=== PATIENT | male | born 1975 | race Caucasian/White ===

== ENCOUNTER 2017-07-30 04:12 | Inpatient (IN) | payer OTHER ==
[~2017-07-30] VITALS: Ht 175.3 cm; Wt 86.8 kg
--- NOTE | 2017-07-30 08:42 | NUR ---
PATIENT TO FLOOR VIA STRETCHER. PATIENT WAS ABLE TO WALK TO BATHROOM AND WIPE HIMSELF WITH HIBICLEANS WIPE. BACK TO BED WITH NO DIFFICULTY. ADMISSION ASSESSMENT DONE. SKIN INTACT. ABD TONES HYPOACTIVE, DENIES NAUSEA. LUNGS CLEAR. PATIENT REPORT PAIN AT THE RLQ, THAT HE RATED AT 4/10. PATIENT WAS MEDICATED. RESTING IN BED AT THIS TIME. CALL LIGHT AND PERSONAL BELONGING WITHIN REACH. PATIENT EDUCATED ABOUT CALLING WHEN NEEDED HELP.
--- NOTE | 2017-07-30 09:27 | NUR ---
PATIENT RESTING IN BED, APPEARS TO BE SLEEPING, RR DAMIEN/UNLABORED. NO APPARENT DISTRESS NOTED.
--- NOTE | 2017-07-30 10:33 | NUR ---
PATIENT WAS UP TO BATHROOM TO VOID. REPORTED RELIEF OF RLQ PAIN. RESTING IN BED AT THIS TIME. NO OTHER COMPLAINTS OR REQUEST. WILL CONTINUE TO MONITOR.
--- NOTE | 2017-07-30 12:30 | NUR ---
DR PONCE IN ROOM TO SEE AND EVALUATE PATIENT. PLAN FOR SURGERY TODAY. ALL QUESTIONS ANSWERED. PATIENT AGREE FOR SURGERY.
--- NOTE | 2017-07-30 12:42 | NUR ---
PATIENT REPORTS PAIN LEVEL AT 5/10. REQUESTED PAIN MED. PATIENT IS MEDICATED WITH DILAUDID. UP TO BATHROOM WITH NO DIFFICULTY. RESTING IN BED AT THIS TIME.
--- NOTE | 2017-07-30 13:16 | NUR ---
PATIENT OFF THE FLOOR WITH O/R NURSE ANGELA TO SURGERY.
--- NOTE | 2017-07-30 15:27 | NUR ---
07/30/17 1527 Rocio Ricks 1516 O2 REMOVED, PT SAT 100%. 1526 PT AWAKE AND ASKING QUESTIONS.
--- NOTE | 2017-07-30 16:17 | NUR ---
PATIENT BACK TO FLOOR FROM SURGERY. BEDSIDE REPORT RECEIVED FROM PACU NURSE. PATIENT SELF TRANSFER TO HOSPITAL BED WITH NO DIFFICULTY. VS TAKEN AND WNL. NO FEVER. SAT 98% ON RA. IV SITE PATENT. 3 LAP SITED ON ABD COVERED WITH GAUZE, DRY/INTACT. PATIENT DENIES NAUSEA. REPORTS 5/10 ABD PAIN AT THE INCISION SITE AND DURING URINATION. PATIENT WAS MEDICATED. JUICE, JELLO AND WATER PROVIDED. FAMILY AT BEDSIDE. NO APPARENT DISTRESS NOTED. PATIENT EDUCATED ABOUT PAIN CONTROL, PO INTAKE AND VOIDING. WILL CONTINUE TO MONITOR
--- NOTE | 2017-07-30 17:28 | NUR ---
TELEPHONE ORDER FROM DR PONCE TO ADVANCE PATIENT TO FULL LIQUID DIET.
--- NOTE | 2017-07-30 19:13 | NUR ---
RECEIVED REPORT FROM RN. PATIENT IS RESTING IN BED. REPORTS 5/10 PAIN. PAIN MEDICATION ADMINISTERED PER EMAR. NO OTHER NEEDS AT THIS TIME. CALL LIGHT WITHIN REACH.
--- NOTE | 2017-07-30 19:49 | NUR ---
PATIENT IS RESTING COMFORTABLY IN BED, BREATHING IS EVEN AND UNLABORED. PAIN MEDICATION GIVEN PER EMAR FOR 5/10 PAIN IN ABD. DENIES OTHER NEEDS AT THIS TIME. ASSESSMENT DONE. CALL LIGHT WITHIN REACH.
--- NOTE | 2017-07-30 21:39 | NUR ---
PATIENT IS RESTING COMFORTABLY IN BED, BREATHING IS EVEN AND UNLABORED. REPORTS 4/10 PAIN IN ABD, AND STATES THAT PAIN INCREASES DURING AMBULATION. GAVE PRN NORCO PER EMAR. WILL CONTINUE TO MONITOR. ALSO PROVIDED PILLOW FOR SPLINTING DURING COUGHING. NO OTHER NEEDS AT THIS TIME. CALL LIGHT WITHIN REACH.
--- NOTE | 2017-07-30 21:59 | NUR ---
PATIENT IN BED WATCHING TV. DOES NOT NEED ANYTHING AT THIS TIME.
--- NOTE | 2017-07-30 23:53 | NUR ---
PATIENT ASLEEP, DOES NOT NEED ANYTHING AT THIS TIME.
--- NOTE | 2017-07-31 00:17 | NUR ---
PATIENT REPORTS 8/10 PAIN IN ABD AFTER AMBULATION. PRN DILAUDID GIVEN PER EMAR. DENIES OTHER NEEDS AT THIS TIME. CALL LIGHT WITHIN REACH.
--- NOTE | 2017-07-31 00:31 | NUR ---
PATIENT PUT ON CONTINUOUS PULSE OX DUE TO RECEIVING IV PAIN MEDICATION. O2 SATURATION WAS FOUND AT 89%, PUT 1L O2 VIA NC ON, WITH O2 SAT GOING TO 93%. PULSE IS 103. PATIENT STATES "THAT PAIN MEDICATION IS STARTING TO WORK, IT MAKES ME SLEEPY." DENIES OTHER NEEDS AT THIS TIME. CALL LIGHT WITHIN REACH.
--- NOTE | 2017-07-31 01:47 | NUR ---
PATIENT IS RESTING COMFORTABLY IN BED, BREATHING IS EVEN AND UNLABORED ON 1L O2 VIA NC. O2 SAT IS 94%, PULSE IS 97. REPORTS 1/10 PAIN IN ABD AND DENIES NEED FOR PAIN MEDICATION. ASSESSMENT DONE. PATIENT HAS NO NEEDS AT THIS TIME. CALL LIGHT WITHIN REACH.
--- NOTE | 2017-07-31 02:06 | NUR ---
PATIENT IN BED. GOT VITAL SIGNS. NURSE DID ASSESSMENT. MADE PATIENT A NEW ICE PACK. PATIENT DOES NOT NEED ANYTHING ELSE AT THIS TIME.
--- NOTE | 2017-07-31 03:48 | NUR ---
PATIENT IS ASLEEP. DOES NOT NEED ANYTHING AT THIS TIME.
--- NOTE | 2017-07-31 05:40 | NUR ---
PATIENT'S NIGHT WAS UNEVENTFUL. HE HAS BEEN RESTING COMFORTABLY IN BED THROUGHOUT SHIFT. PAIN HAS BEEN WELL CONTROLLED WITH PRN NORCO AND DILAUDID. CURRENTLY ON 1L O2 VIA NC DUE TO IV NARCOTIC MEDICATION. VS HAVE BEEN STABLE. HE HAS IV FLUIDS AND IS A SBA. NO ACUTE CHANGES FROM BEGINNING OF SHIFT ASSESSMENT.
--- NOTE | 2017-07-31 06:25 | NUR ---
PATIENT REPORTS 7/10 ABD PAIN. PRN NORCO GIVEN PER EMAR. PATIENT STATES "THAT ORAL PAIN MEDICATION DOESN'T WORK WELL FOR ME." EDUCATION ABOUT PO PAIN MEDICATION WAS PERFORMED; PATIENT WAS INFORMED THAT PO PAIN MEDICATION TAKES LONGER FOR ONSET OF PAIN RELIEF. HE WAS AGREEABLE TO TAKING PO PAIN MEDICATION. TOLD THE PATIENT THAT IF THE PAIN MEDICATION DOES NOT WORK, THE MEDICAL TEAM WILL RE-EVALUATE THE PAIN MEDICATION REGIMIN. NO OTHER NEEDS AT THIS TIME. CALL LIGHT WITHIN REACH.
--- NOTE | 2017-07-31 07:40 | NUR ---
PT VOIDED APPROX 40ML CONCENTRATED URINE PER MARY PAINTER SUPERVISORMEDICAL SURGERY NURSE. PT BLADDER SCANNED FOR 450ML URINE. NOTIFIED DR. PONCE. PRN ORDER FOR STRAIGHT CATH MADE BY DR. PONCE. PT WOULD LIKE "A LITTLE MORE TIME" TO TRY TO VOID BEFORE STRAIGHT CATHING. PT RATING PAIN 3/10 AT THIS TIME, STATES HE IS COMFORTABLE CURRENTLY. CALL LIGHT WITHIN REACH.
--- NOTE | 2017-07-31 07:41 | CONS ---
[facility] [address], [place] [address] Signed DATE OF CONSULTATION: 07/30/2017 REFERRING PHYSICIAN: Dr. Dick Miguel. CHIEF COMPLAINT: Right lower quadrant abdominal pain. HISTORY OF PRESENT ILLNESS: Russel is a 42-year-old gentleman, who is from [place], [place], [place] of [place], [place]. He comes over to our [employer] for the [employer] tournament each year. He developed right lower quadrant and suprapubic abdominal pain yesterday and finally came to the emergency room last evening. He was evaluated in the emergency room and found to have tenderness in the suprapubic and right lower quadrant area with an elevated white blood cell count. A CT scan of the abdomen pelvis confirmed a thickened appendix with some appendicolith and inflammation around the appendix. I was called this morning as a general surgeon on-call. We went ahead and admitted him on Rocephin and Flagyl, and IV fluids with Dilaudid. In the meantime, he has been doing well. Has just come out of the OR down to see Russel currently. PAST MEDICAL HISTORY: None. PAST SURGICAL HISTORY: Fungal nasal infection surgically removed. SOCIAL HISTORY: He does not smoke. He has a drink once in a while. He has no primary care provider. He is to [place] at [phone]. They live in [place], [place] and they have 1 son, age 7. 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 FAMILY HISTORY: Mom and dad are healthy. REVIEW OF SYSTEMS: He had 10 systems reviewed. He seems to be very healthy. ALLERGIES: None. MEDICATIONS: None. Electronically Signed By: NIKA DYER MD 07/31/17 0741 PATIENT NAME: RUSSEL ARRIAZA CONSULTATION DATE OF : 75 PHYSICIAN: NIKA DYER MD REPORT #: [id number] REPORT IS CONFIDENTIAL AND NOT TO BE RELEASED WITHOUT AUTHORIZATION [facility] [address], [place] [address] Signed PHYSICAL EXAMINATION: VITAL SIGNS: His blood pressure 127/80, his heart rate is about 100, respiratory rate 16, and temperature is 99.4. He is 100% on room air. He is 5 feet and 9 inches, 86 kg. GENERAL: Russel is a 42-year-old gentleman lying supine in his hospital bed. He is not systemically ill or toxic, but is clearly does not want to move his abdomen around. LUNGS: Clear to auscultation bilaterally. HEART: Tachycardic. ABDOMEN: Soft and flat, but he has peritoneal signs and symptoms just above the pubic bone and in the right lower quadrant. LABORATORY DATA: His white blood count 16.9, hemoglobin is 14, and neutrophils 83. BUN 11, creatinine 0.79, and glucose 147. Liver function tests are negative. Albumin is 4.4. RADIOGRAPHIC STUDIES: A CT scan of the abdomen and pelvis is reviewed, and he has a thickened appendix with some appendicolith and some periappendiceal inflammation. ASSESSMENT/PLAN: Russel is a 42-year-old gentleman, who presents with classic appendicitis. He has been admitted, given IV fluids and antibiotics and pain control. I have reviewed with Russel his current findings. We have reviewed the location of function of the appendix. We have reviewed laparoscopic versus open appendectomy. He understands expected intraop and postop course. There is risk of surgery including, but not limited to bleeding, infection, scarring, change in contour of the skin, damage to bowel, appendiceal stump leak, postoperative intraabdominal abscess, incisional hernias, and other unforeseen comorbidities. He has expressed understanding and would like to proceed with his surgery. Nika Dyer MD ALB/MODL /[id number] Electronically Signed By: NIKA DYER MD 07/31/17 0741 PATIENT NAME: RUSSEL ARRIAZA CONSULTATION DATE OF : 75 PHYSICIAN: NIKA DYER MD REPORT #: [id number] REPORT IS CONFIDENTIAL AND NOT TO BE RELEASED WITHOUT AUTHORIZATION [facility] [address] [place] [id number] Signed cc: Nika Dyer MD Electronically Signed By: NIKA DYER MD 07/31/17 0741 PATIENT NAME: RUSSEL ARRIAZA CONSULTATION DATE OF : 75 PHYSICIAN: NIKA DYER MD REPORT #: [id number] REPORT IS CONFIDENTIAL AND NOT TO BE RELEASED WITHOUT AUTHORIZATION
--- NOTE | 2017-07-31 07:41 | OR ---
[facility] [address], [place] [address] Signed DATE OF OPERATION: 07/30/2017 SURGEON: Nika Dyer MD PREOPERATIVE DIAGNOSIS: Acute appendicitis. POSTOPERATIVE DIAGNOSES: 1. Acute suppurative appendicitis. 2. Right inguinal hernia. PROCEDURE: Laparoscopic appendectomy. ESTIMATED BLOOD LOSS: None. 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 He was at the [employer], participating in the [employer] tournament. He developed right lower quadrant abdominal pain yesterday, so he came to the emergency room. In the emergency room, he had peritoneal signs and symptoms in the suprapubic area and the right lower quadrant. His white count was elevated at 16.9. A CT scan of the abdomen and pelvis confirmed his thickened appendix with some appendiculus, as well as periappendiceal inflammation. I was operating this morning and so, we admitted him to the floor. He was given Rocephin, and Flagyl along with Dilaudid, and IV fluids. I met with him around noon. Overall, I said, he was about the same. I explained him the above findings. I reviewed with him the location of function of the appendix. We discussed laparoscopic versus open appendectomy. He also understands the expected intraoperative, and postoperative course. We did discuss the risks including, but not limited to bleeding, infection, scarring, change in contour of the skin, damage to bowel, appendiceal stump leak, postoperative intraabdominal abscess, incisional hernias, and other unforeseen comorbidities. He had expressed understanding, and wished to proceed. PROCEDURE NOTE: Russel was brought down to our operating room and placed in the supine position under general endotracheal tube anesthesia. He was on preoperative antibiotics. We gave him subcutaneous heparin in the left lower quadrant. SCDs were utilized. The Goncalves catheter was inserted without difficulty with return of mildly chau, but clear colored urine. After this, he was prepped and draped in usual sterile fashion. We placed our trocars in Electronically Signed By: NIKA DYER MD 07/31/17 0741 PATIENT NAME: RUSSEL ARRIAZA OPERATIVE REPORT DATE OF : 75 PHYSICIAN: NIKA DYER MD REPORT #: [id number] REPORT IS CONFIDENTIAL AND NOT TO BE RELEASED WITHOUT AUTHORIZATION [facility] [address] [place], [place] [address] Signed the usual positions under direct visualization of the camera without difficulty. On inspection, we could see the terminal ileum, and cecum and it took just a minute to realize he has a right inguinal hernia. The tip of the appendix was up in the hernia. With gentle traction, the appendix came out completely intact. We looked at that appendix carefully, and it tapered down nicely to the tip. We then approached the base of the cecum, and we cleared off the appendix from the base of the cecum, and divided it with the help of a linear stapler. We then used a vascular load on the stapler, and we divided the mesoappendix. We used gentle cautery along the mesoappendix staple line for increased hemostasis. The appendix was then placed into an EndoCatch bag. The operative area was irrigated, and suctioned out until clear. His appendix was headed towards necrosis, and was getting close to perforation. After this, the appendix was removed through the right upper quadrant trocar site. We used our laparoscopic suturing device to pass 0 Vicryl suture on either side of the fascia of the subxiphoid trocar site. This was tied down to close this fascia primarily. After this, the gas was allowed to escape and all the trocars were removed. We closed the fascia of the supraumbilical trocar site with interrupted simple and [id number], and 0 Vicryl suture. Local anesthetic was then copiously injected into all trocar sites. Each trocar site was irrigated, and suctioned out until clear. The skin and dermis of each trocar site was closed with interrupted 3-0 subcuticular Monocryl sutures. Dry gauze and tape were then applied. Russel's Goncalves catheter was then removed without difficulty. He was awakened from his anesthesia, extubated in the OR, taken to recovery room in stable condition. Nika Dyer MD ALB/MODL /[id number] cc: Nika Dyer MD Electronically Signed By: NIKA DYER MD 07/31/17 0741 PATIENT NAME: RUSSEL ARRIAZA OPERATIVE REPORT DATE OF : 75 PHYSICIAN: NIKA DYER MD REPORT #: [id number] REPORT IS CONFIDENTIAL AND NOT TO BE RELEASED WITHOUT AUTHORIZATION
--- NOTE | 2017-07-31 09:45 | NUR ---
PT AMB HALLWAY WITH FAMILY, FRANCISCO WELL.
--- NOTE | 2017-07-31 10:46 | NUR ---
PT ABLE TO VOID APPROX 100ML OF CONCENTRATED URINE. STATES HE WOULD LIKE A LITTLE MORE TIME TO VOID INDPENDENTLY BEFORE ATTEMPTING STRAIGHT CATH. MEDICATED WITH PRN NORCO FOR 6/10 POST-OP PAIN. AND SON AT BEDSIDE. DRESSINGS DC'D PER DR. PONCE. ALL 3 SITES WELL APPROXIMATED WITHOUT BLEEDING OR REDDNESS. CALL LIGHT WITHIN REACH.
--- NOTE | 2017-07-31 11:05 | NUR ---
PT AMB HALLWAY WITH FAMILY, FRANCISCO WELL.
--- NOTE | 2017-07-31 11:39 | NUR ---
PT DOING WELL FRESH ICE WATER AM CARE. CALL LIGHT IN REACH
--- NOTE | 2017-07-31 13:10 | NUR ---
PT RESTING IN BED. SET HIM UP FOR HIS SHOWER. TOOK TRAY.
--- NOTE | 2017-07-31 13:30 | NUR ---
PT SHOWERING INDEPENDENTLY, FRANCISCO WELL.
--- NOTE | 2017-07-31 14:20 | NUR ---
PT BACK TO BED AFTER SHOWER. MEDICATED WITH PRN NORCO PER PT REQUEST FOR 5-6/10 PAIN. DENIES NAUSEA. IV RESTARTED, INFUSING WNL. AND SON AT BEDSIDE. CALL LIGHT WITHIN REACH.
--- NOTE | 2017-07-31 14:29 | NUR ---
PT ABLE TO VOID APPROX 100ML AT A TIME. BLADDER SCANNED FOR APPROX 300ML. WILL CONTINUE TO MONITOR URINE OUTPUT CLOSELY.
--- NOTE | 2017-07-31 16:41 | NUR ---
PT AMB HALLWAY WITH FAMILY, FRANCISCO WELL.
--- NOTE | 2017-07-31 17:00 | NUR ---
PT ATTEMPTED TO VOID AFTER WALK. ONLY ABLE TO VOID APPROX 25ML. BLADDER SCANNED FOR 350ML. PT AGREED TO STRAIGHT CATH.
--- NOTE | 2017-07-31 17:30 | NUR ---
PT STRAIGHT CATHED FOR 350ML OF CONCENTRATED URINE. PT FRANCISCO WELL. DENIES FURTHER NEEDS OR CONCERNS.
--- NOTE | 2017-07-31 18:57 | NUR ---
PT ENCOURAGED TO ATTEMPT VOID. MEDICATED WITH PRN NORCO PER REQUEST. ATE SMALL AMOUNT OF FULL LIQUID DINNER. FRANCISCO WELL BUT LITTLE APPETITE. AMB HALLWAY INDEPENDENTLY AT THIS TIME.
--- NOTE | 2017-07-31 20:00 | NUR ---
RECEIVED REPORT AT 1900. FOUND PT IN BED RESTING. PT DENIED PAIN AT THAT TIME. PT ALSO DENIED PASSING GAS.
--- NOTE | 2017-07-31 22:00 | NUR ---
V/S ARE WDL. ALL LOBES ARE CLEAR. PT HAS BEEN AMBULATING THE [address]. HYPOACTIVE BOWEL TONES ARE PRESENT IN ALL QUADRANTS. PT HAS NOT PASSED ANY GAS YET. WILL CONTINUE TO MONITOR URINE OUTPUT.
--- NOTE | 2017-07-31 23:18 | NUR ---
PT URINATED ABOUT 50ML AT 2130. CLINICAL INFORMATICS EDUCATOR BLADDER SCANNED HIM AFTERWARDS WHICH SHOWED 198ML LEFT. I WILL CONTINUE TO MONITOR.
--- NOTE | 2017-08-01 00:29 | NUR ---
PT IS SLEEPING AT THIS TIME.
--- NOTE | 2017-08-01 01:32 | NUR ---
PT BETWEEN [id number] HAS VOIDED 100ML, URINE IS DARK IN COLOR. PVR WAS 368ML. MD PONCE WAS CALLED. HE SAID TO JUST WATCH HIM FOR THIS SHIFT. IF HIS PVR SHOULD REACH 500ML AT ANY POINT IN TIME I WILL PUT A ZIMMERMAN BACK IN. PT ALSO RECEIVE 2 TABS OF NORCO THIS SHIFT. BOWEL TONES ARE STILL HYPOACTIVE AND PT IS STILL NOT PASSING GAS.
--- NOTE | 2017-08-01 03:05 | NUR ---
PT IS SLEEPING AT THIS TIME.
--- NOTE | 2017-08-01 04:43 | NUR ---
PT IS SLEEPING AT THIS TIME.
--- NOTE | 2017-08-01 05:41 | NUR ---
SINCE START OF SHIFT PT HAD TROUBLE WITH URINATION. OUTPUT WAS LOW (150ML/8HRS) FOR THE FIRST 8HRS OF THIS SHIFT. URINE WAS ALSO DARK IN COLOR. PVR BLADDER SCAN [id number] AT THAT AROUND 0115. MD PONCE WAS CALLED AROUND 0130 AND INSTRUCTIONS WERE FIVEN TO KEEP MONITORING. SBP WAS AND HAS REMAINED AROUND 130ISH, HR HAS BEEN AROUND 100-110. AT 0530 PT VOIDED 350ML AND PVR WAS 345ML. URINE IS STILL DARK, THERE IS NO CHANGE IN V/S SINCE START OF SHIFT. BOWEL TONES AT THIS TIME ARE NORMALLY ACTIVE, PT ALSO HAD A SCANT BM (SMEAR) AT 0530. PT AT THIS TIME IS BACK IN BED AT THIS TIME.
--- NOTE | 2017-08-01 07:15 | NUR ---
RECIEVED REPORT FROM LINDA YOST. PT AWAKE IN BED, MEDICATED WITH PRN NORCO PER REQUEST. IV INFUSING WNL. SCD'S IN PLACE. CALL LIGHT WITHIN REACH.
--- NOTE | 2017-08-01 09:30 | NUR ---
PT SITTING UP IN RECLINER. REPORTS HAVING LESS DIFFICULTY VOIDING. DENIES PAIN AT THIS TIME. PT DENIES PASSING GAS "BUT CAN FEEL A LOT OF GAS MOVEMENT." ACTIVE BT. IV INFUSING WNL. LAP SITES OPEN TO AIR, WELL APPROXIMATED, NO DRAINAGE NOTED. PT TAKING SMALL SIPS OF CLEAR LIQUIDS. CALL LIGHT WITHIN REACH.
--- NOTE | 2017-08-01 11:24 | NUR ---
PT AMB HALLWAY INDEPENDENTLY, FRANCISCO WELL. BACK TO ROOM SITTING IN RECLINER VISITING WITH FAMILY AT THIS TIME. GIVEN FRESH ICE WATER. PT REPORTED HAVING A "MORE NORMAL" BM. STILL DENIES PASSING GAS. CALL LIGHT WITHIN REACH.
--- NOTE | 2017-08-01 13:11 | NUR ---
PT LYING IN BED WATCHING TV UPON ENTERING ROOM. PT STATES HE IS HAVING TROUBLE SLEEPING. REFUSED PAIN MEDICATION AT THIS TIME, DENIES NAUSEA. UP INDEPENDENTLY TO RESTROOM. PT VOID AMOUNT INCREASING GRADUALLY. FAMILY AT BEDSIDE.
--- NOTE | 2017-08-01 14:30 | NUR ---
PT MEDICATED WITH PRN NORCO PER REQUEST. PT REPORTING HEADACHE. GIVEN ICE PACK TO PLACE ON NECK. AT BEDSIDE. CALL LIGHT WITHIN REACH.
--- NOTE | 2017-08-01 17:45 | NUR ---
PT REPORTED THAT THE NORCO WAS CAUSING HIM TO HAVE "CRAZY NIGHTMARES" AND WAS HAVING A HARD TIME GETTING REST. CONTACTED DR. PONCE AND RECIEVED AN ORDER FOR TRAMADOL. PT DENIED THE NEED FOR PAIN MEDICATION AT THIS TIME. CURRENTLY SITTING UP IN THE RECLINER STATED "I ACTUALLY FEEL PRETTY DAMN GOOD RIGHT NOW." AT BEDSIDE. CALL LIGHT WITHIN REACH.
--- NOTE | 2017-08-01 18:29 | NUR ---
PT SEEMS TO BE IMPROVING. HAD ONE "MORE NORMAL" BM. STILL DENIES PASSING GAS. PAIN CONTROLLED WELL WITH NORCO, SWITCHED TO TRAMADOL D/T NIGHTMARES. PT DENIED N/V THROUGHOUT SHIFT. IV WNL. CLEAR LIQUID DIET, FRANCISCO WELL. ACTIVE BT. URINE OUTPUT HAS GRADUALLY INCREASED THROUGHOUT SHIFT, LESS CONCENTRATED. 3 LAP SITES OPEN TO AIR, WELL APPROXIMATED, NO DRAINAGE OR INFLAMMATION.
--- NOTE | 2017-08-01 19:30 | NUR ---
REPORT RECVD FROM GLADYS YOST. PT AWAKE WATCHING TV. AT BEDSIDE. D5LR @ 100 INFUSING. BM NOTED TODAY. PT CURRENTLY TAKIN CL DIET. NO FURTHER NEEDS AT THIS TIME. CALL LIGHT IN REACH.
--- NOTE | 2017-08-01 20:01 | NUR ---
IN TO CHECK ON PT, PT AWAKE WATCHING TV. PT RATES PAIN A 5/10, TRAMADOL GIVEN. IV ABX STARTED AND NEW IVF HUNG. ASSESSMENT COMPLETE. PT ABD NOTED TO BE DISTENDED AND TENDER. HYPOACTIVE BOWEL TONE. DENIES N/V. DENIES FLATUS. DID NOT SOME HICCUPS/BURPING. ASKED PT IF HE WAS NAUSEATED ON A COUPLE OF OCCASIONS DURING ASSESSMENT. PT DENIES NAUSEA. NO FURTHER NEEDS AT THIS TIME. PT EDUCATED TO CALL RN IF PAIN DOES NOT GET BETTER OR INCREASES. PT ALSO EDUCATED TO CALL IF HE BECOMES NAUSEATED OR VOMITS. PT UNDERSTANDS. SPOUSE AT BEDSIDE. WILL CONTINUE TO MONITOR. CALL LIGHT IN REACH.
--- NOTE | 2017-08-01 22:25 | NUR ---
IN TO CHECK ON PT, PT UP TO BATHRROM INDEPENDENTLY. RN NOTED HEARING COUGHING AND WHAT WAS THOUGHT TO BE WRETCHING. WHEN ASKED, PT STATES "I AM FINE." PT STATES HE IS HAVING BM, WOULD LIKE PRIVACY. CALL LIGHT IN REACH.
--- NOTE | 2017-08-01 22:40 | NUR ---
IN TO CHECK ON PT, PT SITTING IN CHAIR WATCHING TV. PT STATES HIS PAIN IS BETTER. PT DENIES N/V. HE STATES "I GOT UP AND WENT TO THE BATHROOM PRETTY BIG, GAS AND ALL." PT STATES THAT LYING IN BED INCREASES PAIN. PT ENCOURAGED TO WALK IN HALLWAY TO RELIEVE PAIN. NO FURTHER NEEDS AT THIS TIME. CALL LIGHT IN PLACE.
--- NOTE | 2017-08-02 01:00 | NUR ---
IN TO CHECK ON PT, PT LYING IN BED. APPEARS TO BE SLEEPING. AWAKENS EASILY TO SOUND. PT STATES HE HAS BEEN ABLE TO REST. PT STATES PAIN IS "OKAY." ADVISED PT TO CALL IF PAIN INCREASES. WILL CONTINUE TO MONITOR. CALL LIGHT IN REACH.
--- NOTE | 2017-08-02 01:41 | NUR ---
IN TO CHECK ON PT, PT AWAKE. IV ABX STARTED. PT RATES PAIN 5/10, ULTRAM GIVEN. ASSESSMENT COMPLETE. PT AGAIN QUESTIONED ABOUT N/V, PT DENIES. RN NOTES PT APPEAERS TO BE UNCOMFORTABLE, BREATHING HEAVILY AND SWALLOWING. PT EDUCATED AND ADVISED ABOUT ILEUS AND THE IMPORTANCE OF REPORTING N/V. PT ALSO NOTED TO HAVE 2 MISSED VOIDS. ADVISED PT TO USE URINAL TO MONITOR OUTPUT. PT ACKNOWLEDGES TEACHING. WILL CONTINUE TO MONITOR, CALL LIGHT IN REACH.
--- NOTE | 2017-08-02 05:00 | NUR ---
PT HAS HAD OKAY SHIFT, RESTED INTERMITTENTLY. C/O 4-5/10 ABD PAIN, ULTRAM GIVEN. ABD DISTENDED, BOWEL TONE HYPOACTIVE. PT REPORT HAVING SEVERAL BM'S WITH FLATUS DURING SHIFT. PT DENIES FLATUS AT ANY OTHER TIME. DENIED N/V. CLEAR LIQUID DIET, TOLERATED H20 WELL. IVF INFUSING AND SCHEDULED ABX GIVEN. LAP SITES X3 OPEN TO AIR, WELL APPROX, C/D/I.
--- NOTE | 2017-08-02 05:06 | NUR ---
PT UP AMBULATING IN [place] RIO WITH . TOLERATED WELL.
--- NOTE | 2017-08-02 05:30 | NUR ---
IN TO CHECK ON PT, PT AWAKE SITTING IN CHAIR. PT REQUESTED NORCO FOR BACK PAIN. DISCUSSED THAT NORCO IS STILL AVAILABLE AND CAN INCREASE DOSE OF ULTRAM. PT GIVEN NORCO FOR 7/10 PAIN IN BACK. PT'S STATES PT BACK PAIN IS CHRONIC. PT REQUEST TO SHOWER. EDELMIRA, IV COVERED. PT'S IN ROOM. WILL MONITOR PT.
--- NOTE | 2017-08-02 08:30 | NUR ---
PT SITTING UP IN RECLINER AWAKE. RATING PAIN 2/10, DENIES NEED FOR PAIN MEDICATION AT THIS TIME. DENIES N/V. REPORTS PASSING GAS, HAD MULTIPLE BM'S OVER NIGHT. ABD REMAINS SLIGHTLY DISTENDED BUT PT REPORTS THAT IS "FEELS BETTER AND NOT TIGHT". ACTIVE BT, LUNGS CLEAR. IV INFUSING WNL. 3 LAP SITES OPEN TO AIR, WELL APPROXIMATED, NO DRAINAGE OR REDNESS NOTED. PT ADVANCED TO FULL LIQUID DIET AND ORDERED YOGURT. PRESENT IN ROOM. CALL LIGHT WITHIN REACH.
--- NOTE | 2017-08-02 10:04 | NUR ---
PATIENT SITTING UP IN CHAIR WATCHING TV. FRESH ICE WATER GIVEN. PATIENT STATES THAT HE HAS ALREADY WALKED IN THE HALLWAY THIS AM AND PLANS ON GOING AGAIN SOON. NO OTHER NEEDS AT THIS TIME. REMINDED PATIENT TO URINATE IN THE URINAL.
--- NOTE | 2017-08-02 11:15 | NUR ---
PT LYING ON COUCH SLEEPING SOUNDLY. EYES CLOSED, RESP EVEN AND UNLABORED. AT BEDSIDE.
--- NOTE | 2017-08-02 13:12 | NUR ---
PATIENT SITTING UP IN CHAIR. RN IN ROOM. PATIENT STATES HE'S GETTING READY TO AMBULATE IN THE HALLWAY.
--- NOTE | 2017-08-02 13:25 | NUR ---
PT SITTING IN CHAIR, IN RM. BOTH VERY FRIENDLY, ANXIOUS TO BE WELL ENOUGH TO RETURN HOME TO [facility]. 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 I ENCOURAGED HIM TO DISCUSS THIS WITH DR BEFORE DC. BOTH EXPRESSED PLEASURE IN CARE AND [facility]-"VERY NICE FACILITY". I EXTENDED A BLESSING, WILL BE AVAILABLE NEEDED
--- NOTE | 2017-08-02 13:30 | NUR ---
PT MEDICATED WITH PRN TRAMADOL PER REQUEST FOR 5/10 PAIN. DENIES FURTHER NEEDS OR CONCERNS. STATES HE IS GOING TO GO FOR A WALK SOON, AT BEDSIDE. PT REPORTS HAVING HAD ANOTHER BM.
--- NOTE | 2017-08-02 13:50 | NUR ---
patient laying on couch. in room. no needs at this time.
--- NOTE | 2017-08-02 14:13 | NUR ---
PT DEE WETZEL WITH , FRANCISCO MONTILLA.
--- NOTE | 2017-08-02 17:15 | NUR ---
PT LYING ON COUCH, STATES HE WAS ABLE TO GET A LITTLE BIT MORE REST. STATES HE IS FEELING BETTER, DENIES PAIN OR OTHER CONCERNS AT THIS TIME. AT BEDSIDE, CALL LIGHT WITHIN REACH.
--- NOTE | 2017-08-02 18:02 | NUR ---
PATIENT SITTING UP IN CHAIR WATCHING TV. PATIENT STILL WORKING ON EATING DINNER. IN ROOM. FRESH ICE WATER. NO NEEDS AT THIS TIME. CALL BUTTON IN REACH.
--- NOTE | 2017-08-02 20:35 | NUR ---
VS COMPLETE, PT SITTING IN CHAIR, DENIES NEEDS. IS AWARE HIS RN WILL BE IN TO DO HIS ASSESSMENT. CALL LIGHT WITHIN REACH
--- NOTE | 2017-08-02 20:57 | NUR ---
PT LAYING ON SOFA IN ROOM, IS IN HIS BED. PT REPORTS THE BED IS "TERRIBLE," AND STATES "IM NEVER LAYING IN THAT THING AGAIN." PT ALERT AND ORIENTED X4. INDEPENDANT IN ROOM. PLEASENT DEMEANOR. IV INFUSING WNL. RATES PAIN AT 5/10, "ITS CREEPING BACK UP THERE," GAVE ULTRAM FOR PAIN. DENIES NAUSEA. PT HAS NO FURTHER NEEDS. FRESH ICE WATER GIVEN.
--- NOTE | 2017-08-02 20:59 | NUR ---
MEDS GIVEN, PT COMPLAINED OF 5/10 PAIN IN BACK AND ABD AREA. PT IS LAYING ON THE "GUEST" BED, STATES THAT THE BED IS MORE COMFORTABLE FOR HIM. MED WITH 2 TRAMADOL. DENIES ANY OTHER NEEDS. PT WILL USE CALL LIGHT TO SUMMON HELP FOR PT WHEN NEEDS ARRISE.
--- NOTE | 2017-08-02 23:37 | NUR ---
PT CALLED D/T IV MACHINE ALARMING. REPLACED IVF. PT MOSTLY SLEEPY, DENIES NEEDS AT THIS TIME.
--- NOTE | 2017-08-02 23:49 | NUR ---
PT LAYING ON THE SOFA, IV INFUSING WNL. NO NEEDS AT THIS TIME.
--- NOTE | 2017-08-03 06:54 | NUR ---
PT COMPLAINED OF 4/10 PAIN. GAVE ULTRAM PO FOR PAIN. DR PONCE IN ROOM ROUNDING ON PT.
[2017-08-03] MEDS ORDERED: ULTRAM50 MG PO (07:35)
[2017-08-03] MEDS ORDERED: LEVAQUIN500 MG PO (07:36)
[2017-08-03] MEDS ORDERED: FLAGYL500 MG PO (07:37)
--- NOTE | 2017-08-03 07:38 | NUR ---
PT UP TO SHOWER. ORDERED SCRAMBLED EGGS FOR BREAKFAST. SPOUSE AT BEDSIDE.
--- NOTE | 2017-08-03 08:00 | NUR ---
patient showered and up to chair. eating breakfast. oral care done. call button in reach. no other needs at this time.
--- NOTE | 2017-08-03 10:17 | NUR ---
DISCHARGE PACKET AND EDUCATIONS GIVEN TO PT AND SPOUSE IN REGARDS TO ACTIVITY RESTRICTIONS PER MD ORDERS, DIET RESTRICTIONS PER MD ORDERS, AND MEDICATIONS EDUCATION LAST DOSE NEXT DOSE. ALSO EDUCATIONS ON SURGERY SITE CARE. OK TO SHOWER, KEEP SITES CLEAN AND DRY. I.V. SITE REMOVED WNL, TIP INTACT. FOLLOW UP WITH PRIMARY CARE PROVIDER IN 7-10 DAYS.
--- NOTE | 2017-08-03 10:17 | NUR ---
GOT LAST SET OF VITALS ON PT BEFORE DISCHARGE. PT REFUSED WHEELCHAIR AND SAID HE WAS FINE TO WALK
--- NOTE | 2017-08-04 06:39 | DS ---
[facility] [address], [place] [address] Signed ADMISSION DATE: 07/30/2017 DISCHARGE DATE: 08/03/2017 FINAL DIAGNOSES: 1. Acute suppurative appendicitis. 2. Right inguinal hernia. PROCEDURE: 1. Laparoscopic appendectomy. 2. CT scan of abdomen and pelvis. 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 He lives in [place], [place]. That is 2 hours north of [place], [place] and over an hour from any hospital or medical physician. He came in to [place] to our [employer] for a [employer] tournament. He had developed a day of right lower quadrant abdominal pain. He finally came to the emergency room for evaluation. HOSPITAL COURSE: Ang was seen in the emergency room and found to have peritonitis in the suprapubic and area in the right lower quadrant. His temperature was up at 99.4 and he was little tachycardic. His white count was elevated at 16.9. CT scan of the abdomen and pelvis confirmed a very thickened inflamed appendix with appendicolith. I was asked to see him as a general surgeon on-call. I met with Ang. I took him to the operating room for a laparoscopic appendectomy. He also has a right inguinal hernia. He had inflammatory changes over the dome of the bladder along the right abdominal wall. We left him on Rocephin and Flagyl throughout the hospital stay. He did have some trouble urinating, but declined re-insertion of a Goncalves catheter. Finally today, he is markedly improved. He is urinating and feels like he is back to his baseline in that regard. His white count has come down, his fever has come down, and his tachycardia has resolved. He looks and feels much better. He is up to a full liquid diet and has had lots of flatus for the last 2 days and lots of bowel movements for the last 2 days as well. His abdomen is still [id number] distended, although soft. The peritonitis has resolved. He is nontender. All incisions are healing well without any local signs or symptoms of infection. At this point, we are going to be discharging him to home with his . DISCHARGE PLANS AND MEDICATIONS: Ang said their local physician has retired and he has been trying to establish with a nearby physician, Dr. Azalea Gaffney over in [place], [place]. I encouraged Ang to call and make an appointment with Dr. Gaffney for followup in about 7-10 days. We will send Ang home with tramadol 50 mg 1-2 tablets p.o. q.4-6 hours p.r.n. pain. We will dispense 50 tablets with no refills. We had given him hydrocodone here in the hospital and he was elucidating, although he did do well with his Dilaudid IV. In addition, he Electronically Signed By: NIKA PONCE MD 08/04/17 0639 PATIENT NAME: ANG ARRIAZA DISCHARGE SUMMARY DATE OF : 75 PHYSICIAN: NIKA PONCE MD REPORT #: [id number] REPORT IS CONFIDENTIAL AND NOT TO BE RELEASED WITHOUT AUTHORIZATION [address] [address] Signed can always use ibuprofen or Tylenol [id number] for pain. We are going to send him home with Levaquin 500 mg p.o. daily, we will dispense 4 tablets with no refills. We will give him Flagyl 500 mg p.o. t.i.d., 12 tablets with no refills. This will extend his antibiotics out to 7-8 days. In the meantime, I have asked him to stay on more of a soft diet for the next week until he is feeling better. Then, he could advance his diet as tolerated. He should stay away from any carbonated beverages. He cannot drink alcohol while taking the Flagyl. He should not do any heavy pushing, pulling, or lifting over 20 pounds for 1 month, 50 pounds for second month, and after that no restrictions. In the meantime, he is welcome to use ice over the incisions and he can shower and bathe as usual. He is self-employed. 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 He is always welcome to call my office here in [place], [place] at #[phone] if he needs anything or has any questions. He and his have expressed understanding and agreed to above plan. Nika Ponce MD [facility]/[place] /[id number] cc: MD Dr. Azalea Mensah [place] Electronically Signed By: NIKA PONCE MD 08/04/17 0639 PATIENT NAME: ANG ARRIAZA DISCHARGE SUMMARY DATE OF : 75 PHYSICIAN: NIKA PONCE MD REPORT #: [id number] REPORT IS CONFIDENTIAL AND NOT TO BE RELEASED WITHOUT AUTHORIZATION
== END 2017-08-03 10:28 | disposition home or self-care (01) | DRG 343 ==
LOC: ED 04:12 → MS 07:20
PROVIDERS: ADMIT Colon & Rectal Surgery
PROC: 0DTJ4ZZ Resection of Appendix, Percutaneous Endoscopic Approach (ICD-10-PCS; principal; 2017-07-30 12:15)
DX: K35.80 Unspecified acute appendicitis (principal); K40.90 Unilateral inguinal hernia, without obstruction or gangrene, not specified as recurrent
CPT/HCPCS: 00840; 36415; 74177; 80048; 80053; 81001; 83735; 84100; 85025; 94760; 94762; 96361; 96374; 96375; 96376; 99285; J0696; J1170; J1644; J1885; J2405; J2704; J2710; J3010; J7030; J7120; Q9967